=== PATIENT | female | born 1980 | race Two or more races ===

== ENCOUNTER 2022-01-28 05:53 | Day surgery (SDC) | payer OTHER ==
[~2022-01-28] VITALS: Ht 167.6 cm; Wt 63.5 kg
[~2022-01-28 05:53] MED LIST: D3 + K2 DOTS 11 EACH PO; GREEN TEA1 EACH PO; MAGNESIUM250 M1 PO; MULTIPLE VITAM1 EAC2 PO; ZINC50 M1 PO
== END 2022-01-28 12:40 | disposition home or self-care (01) ==
LOC: CIR.AMB 05:53 → EDBD 09:45 → CIR.AMB 12:40
PROVIDERS: ATTEND Specialist
DX: N60.32 Fibrosclerosis of left breast (principal); Z20.822 Contact with and (suspected) exposure to COVID-19; Z91.041 Radiographic dye allergy status; Z71.6 Tobacco abuse counseling; F17.210 Nicotine dependence, cigarettes, uncomplicated